=== PATIENT | female | born 1995 | race African-American/Black ===

== ENCOUNTER 2020-04-28 11:07 | Emergency (ER) | payer OTHER ==
[~2020-04-28] VITALS: Ht 154.9 cm; Wt 97.5 kg
[~2020-04-28 11:07] MED LIST: CETIRIZINE HCL5 MG PO; CIPRO500 M1 PO; CIPRO500 MG PO; IBUPROFEN 600600 M1 PO; TYLENOL325 MG PO
[2020-04-28 12:14] LABS: URINE BILIRUBIN NEGATIVE (Negative); URINE BLOOD 3+ (Negative); URINE CLARITY SL CLOUDY; URINE COLOR YELLOW; URINE GLUCOSE-RANDOM* NEGATIVE (Negative); URINE KETONES NEGATIVE (Negative); URINE NITRITE-REFLEX NEGATIVE (Negative); URINE PROTEIN (DIPSTICK) 1+ (Negative); URINE SPECIFIC GRAVITY 1.025 (1.005-1.035); URINE UROBILINOGEN 0.2 E.U./dl (0.2-1.0)
[2020-04-28 12:21] LABS: URINE LEUKOCYTES-REFLEX 3+ (Negative)
[2020-04-28 12:48] LABS: CASTS None Seen /LPF (None Seen); CRYSTALS None Seen /LPF (None Seen); MUCUS 0-3 Light strn/LPF (None Seen); SQUAMOUS 0-3 Few /LPF (0-3); URINE WBC-REFLEX >25 Many /HPF (0-5)
[2020-04-28 12:49] LABS: BACTERIA-REFLEX 1-9 Few /HPF (None Seen); URINE RBC 3-10 Few /HPF (0-2)
[2020-04-28] MEDS ORDERED: NORFLEX100 MG PO (14:07)
[2020-04-28] MEDS ORDERED: KEFLEX500 M1 PO (14:07)
[2020-04-28] MEDS ORDERED: NAPROSYN500 MG PO (14:07)
[2020-04-28 14:17] VITALS: BP 122/105
== END 2020-04-28 14:20 | disposition home or self-care (01) ==
LOC: ER 11:07
PROVIDERS: Physician Assistant
DX: N39.0 Urinary tract infection, site not specified (principal); M54.9 Dorsalgia, unspecified

== ENCOUNTER 2020-12-21 20:42 | Emergency (ER) | payer OTHER ==
[~2020-12-21] VITALS: Ht 154.9 cm; Wt 104.3 kg
[~2020-12-21 20:42] MED LIST changes: +KEFLEX500 M1 PO; +NAPROSYN500 MG PO; +NORFLEX100 MG PO
[2020-12-21 20:46] VITALS: BP 102/67
[2020-12-21] MEDS ORDERED: AMOXICILLIN500 M1 PO (22:19)
[2020-12-21] MEDS ORDERED: TESSALON PERLE100 MG PO (22:19)
== END 2020-12-21 22:50 | disposition home or self-care (01) ==
LOC: ER 20:42
DX: J02.9 Acute pharyngitis, unspecified (principal); Z20.822 Contact with and (suspected) exposure to COVID-19